=== PATIENT | male | born 1950 | race Caucasian/White ===

== ENCOUNTER → 2017-06-18 | Outpatient (CLI) | payer MEDICARE ==
--- NOTE | 2017-06-18 09:48 | US ---
EXAMINATION TYPE: US groin extremity LT DATE OF EXAM: 06/18/2017 COMPARISON: NONE CLINICAL HISTORY: K40.90 INGUINAL HERNIA. Bulging, pressure left groin since 04/10 No evidence of a break in the abdominal wall by ultrasound at this time within area of concern (left groin) IMPRESSION: No sonographic evidence of hernia.
== END | disposition home or self-care (01) ==
LOC: RADUSWWP 07:46
PROVIDERS: ATTEND Family Medicine
DX: K40.90 Unilateral inguinal hernia, without obstruction or gangrene, not specified as recurrent (principal)

== ENCOUNTER → 2017-06-22 | Outpatient (CLI) | payer MEDICARE ==
--- NOTE | 2017-06-23 11:56 | ECHOF ---
Referral Reason:R55 Syncope MEASUREMENTS -------- HEIGHT: 180.3 cm WEIGHT: 95.3 kg BP: 141/71 RVIDd: 2.9 cm (< 3.3) IVSd: 1.3 cm (0.6 - 1.1) LVIDd: 4.4 cm (3.9 - 5.3) LVPWd: 1.3 cm (0.6 - 1.1) EDV(Teich): 90 ml IVSs: 1.6 cm LVIDs: 2.9 cm LVPWs: 1.5 cm %IVS Thck: 30 % ESV(Teich): 32 ml EF(Teich): 64 % %FS: 35 % SV(Teich): 57 ml LA Diam: 3.2 cm (2.7 - 3.8) IVC: 2.1 cm LALs A4C: 5.0 cm LAAs A4C: 16.1 cm LAESV A-L A4C: 44 ml LAESV MOD A4C: 39 ml LALs A2C: 5.3 cm LAAs A2C: 15.5 cm LAESV A-L A2C: 38 ml LAESV MOD A2C: 36 ml LAESV(A-L): 42 ml LAESV Index (A-L): 19.69 ml/m Ao Diam: 3.1 cm (2.0 - 3.7) AV Cusp: 2.2 cm (1.5 - 2.6) MV E Tanvir: 0.87 m/s MV DecT: 189 ms MV Dec Baylor: 4.6 m/s MV A Tanvir: 0.89 m/s MV E/A Ratio: 0.98 MV PHT: 55 ms E/E': 11.51 E': 0.08 m/s AV Vmax: 1.32 m/s AV maxP.95 mmHg FINDINGS -------- Sinus rhythm. This was a technically good study. The left ventricular size is normal. There is mild concentric left ventricular hypertrophy. Overall left ventricular systolic function is normal with, an EF between 60 - 65 %. The right ventricle is normal in size. Normal LA size by volume 22+/-6 ml/m2. The right atrium is normal in size. The aortic valve is trileaflet and appears structurally normal. The mitral valve is normal. The tricuspid valve appears structurally normal. Trace/mild (physiologic) pulmonic regurgitation. The aortic root size is normal. The inferior vena cava is mildly dilated. There is no pericardial effusion. CONCLUSIONS -------- 1. Sinus rhythm. 2. The mitral valve is normal. 3. The tricuspid valve appears structurally normal. 4. Trace/mild (physiologic) pulmonic regurgitation. 5. The aortic root size is normal. 6. The inferior vena cava is mildly dilated. 7. There is no pericardial effusion. 8. This was a technically good study. 9. The left ventricular size is normal. 10. There is mild concentric left ventricular hypertrophy. 11. Overall left ventricular systolic function is normal with, an EF between 60 - 65 %. 12. The right ventricle is normal in size. 13. Normal LA size by volume 22+/-6 ml/m2. 14. The right atrium is normal in size. 15. The aortic valve is trileaflet and appears structurally normal. DRAFTER (CAD) ELECTRONIC: Hugh Kendrick RDCS
== END | disposition home or self-care (01) ==
LOC: RADECHMAIN 12:57
PROVIDERS: ATTEND Family Medicine
DX: I37.1 Nonrheumatic pulmonary valve insufficiency (principal)
CPT/HCPCS: 93306

== ENCOUNTER → 2017-06-24 | Outpatient (CLI) | payer MEDICARE ==
[~2017-06-24] MED LIST: DOBUTamine DRIP for NUC MED 500 MG in DEXTROSE/WATER 1 250ML.BAG IV ONE; DOBUTamine DRIP for NUC MED 500 MG/250 ML BAG IV ONE
--- NOTE | 2017-06-25 06:05 | ECHOS ---
STRESS ECHOCARDIOGRAM Date of Service: 06/24/2017 INDICATIONS:: Syncope. MEDICATIONS:: BASELINE HEART RATE:: 69 BASELINE BLOOD PRESSURE:: 112/56 MAXIMUM HEART RATE:: 135 MAXIMUM BLOOD PRESSURE:: 145/57 85% MPHR:: 132 100% MPHR:: 155 METS:: MAXIMUM STAGE REACHED:: TOTAL EXERCISE TIME:: CLINICAL INFORMATION:: Mr. Zapata is a 66-year-old gentleman with history of hypertension, diabetes and hypercholesterolemia being evaluated for cardiac status and symptoms of palpitations. Baseline EKG showed sinus rhythm with normal FL interval and QRS duration. blood pressure at rest is 112/56 with a pulse rate of 69. A standard dose of dobutamine was initiated and was titrate to 40 mcg achieving a maximum heart rate of 135 with a blood pressure of 145/57. EKGs taken during and after the dobutamine infusion did not reveal any significant change from the baseline. Occasional PVCs were noted. ECHO DATA: Baseline echo images showed normal wall motion and thickening. Dobutamine echo images showed augmentation of wall motion and thickening in all the segments at both the low dose and high dose. FINAL IMPRESSION: 1. Negative dobutamine stress. 2. Negative dobutamine stress echo. 3. Occasional PVCs. MMODL / IJN: [id number] /
== END | disposition home or self-care (01) ==
LOC: RADNMMAIN 10:56
PROVIDERS: ATTEND Family Medicine
DX: R55 Syncope and collapse (principal)
CPT/HCPCS: 93017; 93350; 93270; 93271; J1250

== ENCOUNTER 2017-07-01 07:45 | Day surgery (SDC) | payer MEDICARE ==
[2017-06-29 13:23] VITALS: BMI 29.2
[~2017-07-01 07:45] MED LIST changes: -DOBUTamine DRIP for NUC MED 500 MG in DEXTROSE/WATER 1 250ML.BAG IV ONE; -DOBUTamine DRIP for NUC MED 500 MG/250 ML BAG IV ONE; +LACTATED RINGERS 1,000 ML IV SCH; +LIDOCAINE 1% 20 ML VIAL (10MG/ML) FOR IV START INTRADERMA PRN
[2017-07-01 08:07] VITALS: RESP 16; TEMP 99.2
[2017-07-01 08:15] LABS: Glucose,Whole Blood 99 mg/dL (75-99)
[2017-07-01] MEDS ORDERED: LIDOCAINE 1% INJ 10MG/ML (20 ML MDV) ONE (08:49)
[2017-07-01] MEDS ORDERED: PROPOFOL 10 MG/ML 20 ML VIAL IV ONE (08:49)
--- NOTE | 2017-07-01 09:34 | P.PCN ---
Date of Procedure: 07/01/17 Preoperative Diagnosis: Postoperative Diagnosis: Procedure(s) Performed: Procedure: 1. Esophagogastroduodenoscopy and biopsy. 2. Colonoscopy and polypectomy. Preoperative diagnosis: History of esophageal stricture and screening colonoscopy. Postoperative diagnosis: 1. Mild gastritis and duodenitis. 2. Mild sigmoid diverticulosis with no evidence of acute diverticulitis or strictures. 3. Two small/diminutive polyps in the proximal sigmoid snared but no large polyps or cancer. Preparation: HalfLytely prep. Sedation: Was provided by anesthesia. Brief clinical history: The patient is a 66-year-old male who is scheduled for this evaluation for screening for colon neoplasia. In addition, he has history of esophageal stricture and history of episodes of obstructive dysphagia in the past and he has required dilation. His last endoscopies were more than 5 years ago. Procedure: With the patient on his left lateral decubitus position and after informed consent and adequate sedation, I passed the Olympus-GIF 160 video upper endoscope through the cricopharyngeus down the esophagus. GE junction was around 40 cm from the incisors. The esophagus did not show any obvious esophagitis or any strictures or other evidence of complicated reflux disease. There was no hiatal hernia. The endoscope was then passed into the stomach which was insufflated with air and inspected in detail including the retroflex view in the cardia. There was some mottling and erythema in the antrum but no ulcers or erosions. Pyloric channel did not show any ulcers. Duodenal bulb showed some erythema and occasional erosion but no ulcers or bleeding. Post bulbar area and descending duodenum showed some erythema. I obtained biopsies from the duodenum antrum and esophagus then the endoscope was withdrawn and I proceeded with the colonoscopy. Perianal area did not show any fissures or fistulas. There were no masses felt on digital rectal examination. The Olympus CFQ 160L video colonoscope was then inserted in the rectum and the usual fashion and advanced to the cecum. The mucosa appeared healthy. There was occasional small diverticular orifices seen in the sigmoid with no evidence of acute diverticulitis or strictures. In the proximal sigmoid, there were 2 small/diminutive polyps one was snared and there was fulgurated with the snare but there were no large polyps or cancer. I retroflexed the endoscope in the rectum before the endoscope was withdrawn. The patient tolerated the procedure well. Plan: The patient was reassured. Will await pathology results. He will follow up with you as planned. I anticipate repeating his colonoscopy in 5 years. Implants: Indications for Procedure: Operative Findings: Description of Procedure:
[2017-07-01 10:04] VITALS: BP 134/66; PULSE 91
== END 2017-07-01 10:18 | disposition home or self-care (01) ==
LOC: ORWHC2ENDO 07:45
DX: Z12.11 Encounter for screening for malignant neoplasm of colon (principal); K29.50 Unspecified chronic gastritis without bleeding; K21.0 Gastro-esophageal reflux disease with esophagitis; D12.5 Benign neoplasm of sigmoid colon; K29.80 Duodenitis without bleeding; K57.30 Diverticulosis of large intestine without perforation or abscess without bleeding; E11.42 Type 2 diabetes mellitus with diabetic polyneuropathy; I10 Essential (primary) hypertension; E78.5 Hyperlipidemia, unspecified; G12.21 Amyotrophic lateral sclerosis; Z85.46 Personal history of malignant neoplasm of prostate; Z88.8 Allergy status to other drugs, medicaments and biological substances; Z79.84 Long term (current) use of oral hypoglycemic drugs; Z79.891 Long term (current) use of opiate analgesic; Z79.899 Other long term (current) drug therapy
CPT/HCPCS: 88305; 88342; 45385; 43239; J2001; J2704

== ENCOUNTER → 2017-07-27 | Day surgery (SDC) | payer MEDICARE ==
[2017-07-22 16:12] VITALS: BMI 29.2
[~2017-07-27] MED LIST changes: -LACTATED RINGERS 1,000 ML IV SCH; -LIDOCAINE 1% 20 ML VIAL (10MG/ML) FOR IV START INTRADERMA PRN; +SODIUM CHLORIDE 0.9% 1,000 ML IV SCH
[2017-07-27 08:01] VITALS: BP 136/81; PULSE 68; RESP 16; TEMP 98.8
[2017-07-27 08:21] LABS: Glucose,Whole Blood 99 mg/dL (75-99)
--- NOTE | 2017-07-27 13:57 | CA ---
CARDIOLOGY REPORT 12 LEAD ECG REPORT: A 12-lead ECG shows sinus rhythm with normal MI interval, normal QRS, normal ST segments, normal QT interval. TILT TABLE TEST: Baseline blood pressure 114/74 mmHg.. Baseline heart rate was 60 beats per minute. Patient is tilted upright at an angle of 70 degrees per protocol. There was no change in heart rate or blood pressure. He did feel lightheaded and during the procedure he also was complaining of some shortness of breath and feeling tired but this was not associated with any change in blood pressure, nor change in heart rate. He was laid supine at the end of the procedure. IMPRESSION: Normal heart rate and blood pressure response to upright tilting. MMODL / IJN: [id number] /
== END ==
LOC: CATHEP 07:42
PROVIDERS: ATTEND Internal Medicine Clinical Cardiac Electrophysiology
DX: R42 Dizziness and giddiness (principal); R06.02 Shortness of breath
CPT/HCPCS: 93005; 93660

== ENCOUNTER 2018-11-29 08:55 | Day surgery (SDC) | payer MEDICARE ==
[2018-11-25 10:26] VITALS: BMI 29.2
[~2018-11-29 08:55] MED LIST changes: +DEXAMETHASONE SOD PHOSPHATE 10 MG/ML 1 ML VIAL IV ONE; +HEPARIN SODIUM,PORCINE 5,000 UNIT/ML 1 ML VIAL SQ ONE; +LIDOCAINE 1% 20 ML VIAL (10MG/ML) FOR IV START INTRADERMA PRN; +MIDAZOLAM (PF) 2 MG/2 ML VIAL IV PRN; -SODIUM CHLORIDE 0.9% 1,000 ML IV SCH; +ceFAZolin IN SWFI 2 GM/20 ML SYRINGE IVP ONE
[2018-11-29] MEDS: LACTATED RINGERS 1,000 ML IV SCH ×3 (10:19→10:59)
[2018-11-29 10:22] LABS: Glucose,Whole Blood 107 mg/dL (75-99)
--- NOTE | 2018-11-29 10:27 | P.GSHP ---
History of Present Illness H&P Date: 11/29/18 Chief Complaint: Left inguinal hernia This is a 67-year-old male who presents today for laparoscopic robotic system repair of left inguinal hernia. Past Medical History Past Medical History: Cancer, Diabetes Mellitus, GERD/Reflux, Hyperlipidemia, Hypertension, Neurologic Disorder, Pneumonia, Prostate Disorder, Rheumatoid Arthritis (RA), Thyroid Disorder Additional Past Medical History / Comment(s): hx prostate cancer. dx ALS- received immunoglobulin for 2 years History of Any Multi-Drug Resistant Organisms: None Reported Past Surgical History: Heart Catheterization, Orthopedic Surgery, Prostate Surgery Additional Past Surgical History / Comment(s): tendon surgery rt bicep, rt hand trigger finger, tear duct stent-rt eye, Past Anesthesia/Blood Transfusion Reactions: No Reported Reaction Smoking Status: Former smoker - Past Family History Father Family Medical History: Cancer Mother Family Medical History: Cancer Medications and Allergies Home Medications Medication Instructions Recorded Confirmed Type Atorvastatin Calcium [Lipitor] 20 mg PO HS 06/29/17 11/29/18 History Cyclobenzaprine [Flexeril] 10 mg PO TID PRN 06/29/17 11/29/18 History Diclofenac Sodium [Voltaren] 75 mg PO BID 06/29/17 11/29/18 History Enalapril [Vasotec] 10 mg PO DAILY 06/29/17 11/29/18 History Gabapentin 800 mg PO QID 06/29/17 11/29/18 History Levothyroxine Sodium [Synthroid] 50 mcg PO DAILY 06/29/17 11/29/18 History metFORMIN HCL [Glucophage] 500 mg PO BID 06/29/17 11/29/18 History traMADol HCL [Ultram] 50 mg PO QID PRN 06/29/17 11/29/18 History Allergies Allergy/AdvReac Type Severity Reaction Status Date / Time No Known Allergies Allergy Verified 11/29/18 09:35 Surgical - Exam Vital Signs Temp Pulse Resp BP Pulse Ox 96.3 F L 82 20 130/72 97 11/29/18 09:44 11/29/18 09:44 11/29/18 09:44 11/29/18 09:44 11/29/18 09:44 - General well developed, no distress - Eyes PERRL - ENT normal pinna - Neck no masses - Respiratory normal expansion - Cardiovascular Rhythm: regular - Abdomen Abdomen: soft, non tender Hernia: inguinal (Reducible left inguinal hernia) Results - Labs Abnormal Lab Results - Last 24 Hours (Table) 11/29/18 Range/Units 10:14 POC Glucose (mg/dL) 107 H (75-99) mg/dL Assessment and Plan Assessment: Left inguinal hernia. We'll perform laparoscopic robotic-assisted repair.
[2018-11-29] MEDS ORDERED: ONDANSETRON 4 MG/2 ML VIAL IVP ONE (10:45)
[2018-11-29] MEDS ORDERED: HYDROmorphone (PF) 1 MG/ML ONE (10:56)
[2018-11-29] MEDS ORDERED: KETOROLAC 30 MG/ML 1 ML VIAL ONE (10:56)
[2018-11-29] MEDS ORDERED: fentaNYL (PF) 50 MCG/ML 2 ML AMP ONE (10:56)
[2018-11-29] MEDS ORDERED: PROPOFOL 10 MG/ML 20 ML VIAL IV ONE (10:56)
[2018-11-29] MEDS ORDERED: SUCCINYLCHOLINE CHLORIDE 100 MG/5 ML SYR IV ONE (10:56)
[2018-11-29] MEDS ORDERED: ROCURONIUM BROMIDE 10 MG/ML 10 ML VIAL IV ONE (10:56)
[2018-11-29] MEDS ORDERED: NEOSTIGMINE 1 MG/ML 10 ML VIAL ONE (10:56)
[2018-11-29] MEDS ORDERED: LIDOCAINE 1% INJ 10MG/ML (20 ML MDV) ONE (10:56)
[2018-11-29] MEDS ORDERED: GLYCOPYRROLATE 0.2 MG/ML 2 ML VIAL ONE (10:56)
[2018-11-29] MEDS ORDERED: ROPIVACAINE 5 MG/ML 30 ML VIAL ONE (10:56)
--- NOTE | 2018-11-29 11:03 | P.ONQ ---
Anesthesiology Proc Note - PNB - Peripheral Nerve Block Performed Left Transversus Abdominis Single Time Out Performed: Yes (1046) Procedure Start Time: 10:47 Procedure Stop Time: 10:52 Indication: Acute Post-Operative Pain, Requested by physician (Casandra) Sedation Type: Sedate with meaningful contact maintained Preparation: Sterile Prep Position: Supine Catheter: None Needle Types: Facet Needle Size: 100mm (4") Needle Gauge: 20 Technique: Ultrasound Injectate: 0.5% Ropivacaine (see comment for volume) (30 mls) Blood Aspirated: No Pain Paresthesia on Injection Noted: No Resistance on Injection: Normal Events: Uneventful and Well Tolerated
[2018-11-29] MEDS ORDERED: BUPIVACAIN-EPI 0.5%-1:200,000 30 ML VIAL SQ ONE (11:18)
--- NOTE | 2018-11-29 12:08 | P.OP ---
Date of Procedure: 11/29/18 Preoperative Diagnosis: Left inguinal hernia Postoperative Diagnosis: Bilateral inguinal hernia Procedure(s) Performed: Laparoscopic robotic-assisted repair of bilateral inguinal hernia Right cord lipoma excision Anesthesia: MIGEL Surgeon: Steve Guajardo Estimated Blood Loss (ml): 5 Pathology: other (Right cord lipoma) Condition: stable Disposition: PACU Description of Procedure: The patient was placed on the operating table in the supine position. The patient received general anesthesia. The patient's abdomen was prepped and draped in usual sterile fashion. The skin was anesthetized 1% local Xylocaine at the incision sites. Using an 11 blade a skin incision was made at the umbilicus. The fascia was grasped with a Victor Manuel and then the peritoneal cavity was entered with the Veress needle. Position of the Veress needle was confirmed with a positive drop test. After adequate insufflation a 5 mm trocar was placed into the peritoneal cavity. The Laparoscope was placed the peritoneal cavity. And a robotic 8 mm trocar was placed in the right lateral position and then another 8 mm robotic trochars placed in the left lateral position. The original 5 mm trocar was exchanged for a 12 mm trocar. The patient was placed in reverse Trendelenburg and then the patient was docked to the robot. The left inguinal hernia contained incarcerated sigmoid colon. This was reduced with gentle traction. Next the peritoneum over top of the left hernia was incised and then using blunt and sharp dissection and electrocautery the hernia sac was dissected free from the floor of the inguinal canal. The hernia sac was completely reduced into the peritoneal cavity. And then using the Pro tractor trailer truck driver mesh the hernia was repaired. The peritoneum was then sutured with 2-0V lock suture. Next, the peritoneum over the right inguinal hernia was incised. And then using blunt and sharp dissection the hernia sac was dissected free from the floor of the inguinal canal. The hernia sac was completely reduced in the peritoneal cavity. A core lipoma was dissected free from the cord. And then using the Pro tractor trailer truck driver mesh the hernia was repaired. The peritoneum was then sutured with 2-0 Vicryl the lock suture. The patient was then undocked the robot. The needles and cord lipoma was withdrawn from the peritoneal cavity. The umbilical trocar site was closed with 0 Ethibond suture. The skin was closed interrupted 3-0 Monocryl suture. Dermabond dressing was applied. Patient was sent to recovery in stable condition.
[2018-11-29] MEDS: fentaNYL (PF) 50 MCG/ML 2 ML AMP IV PRN ×2 (12:18→12:33)
[2018-11-29 12:24] VITALS: TEMP 97
[2018-11-29 12:26] VITALS: RESP 16
[2018-11-29 13:39] VITALS: BP 153/85; PULSE 70
== END 2018-11-29 14:09 | disposition home or self-care (01) ==
LOC: OR 08:55
PROVIDERS: ATTEND Surgery
DX: K40.30 Unilateral inguinal hernia, with obstruction, without gangrene, not specified as recurrent (principal); K40.90 Unilateral inguinal hernia, without obstruction or gangrene, not specified as recurrent; E11.9 Type 2 diabetes mellitus without complications; E07.9 Disorder of thyroid, unspecified; E78.5 Hyperlipidemia, unspecified; D17.6 Benign lipomatous neoplasm of spermatic cord; K21.9 Gastro-esophageal reflux disease without esophagitis; M06.9 Rheumatoid arthritis, unspecified; I10 Essential (primary) hypertension; Z87.891 Personal history of nicotine dependence; Z85.46 Personal history of malignant neoplasm of prostate; Z79.890 Hormone replacement therapy; Z79.84 Long term (current) use of oral hypoglycemic drugs; Z79.899 Other long term (current) drug therapy
CPT/HCPCS: 49650; 64486; 88304; 84132; C1781; J1644; J1100; J2710; J2405; J2001; J3010; J1885; J1170; J2795; J0330; J2704; J0690; J2250; 64488

== ENCOUNTER 2023-08-18 09:38 | Day surgery (SDC) | payer MEDICARE ==
[~2023-08-18 09:38] MED LIST changes: -DEXAMETHASONE SOD PHOSPHATE 10 MG/ML 1 ML VIAL IV ONE; -HEPARIN SODIUM,PORCINE 5,000 UNIT/ML 1 ML VIAL SQ ONE; +LACTATED RINGERS 1,000 ML IV SCH; -LIDOCAINE 1% 20 ML VIAL (10MG/ML) FOR IV START INTRADERMA PRN; -MIDAZOLAM (PF) 2 MG/2 ML VIAL IV PRN; -ceFAZolin IN SWFI 2 GM/20 ML SYRINGE IVP ONE
[2023-08-18 10:02] VITALS: TEMP 97.3
[2023-08-18 10:11] LABS: Glucose,Whole Blood 75 mg/dL (70-110)
[2023-08-18] MEDS ORDERED: PROPOFOL 10 MG/ML 20 ML VIAL IV ONE (10:11)
[2023-08-18] MEDS ORDERED: LIDOCAINE 1% INJ 10MG/ML (20 ML MDV) ONE (10:11)
--- NOTE | 2023-08-18 10:30 | P.PCN ---
Date of Procedure: 08/18/23 Procedure(s) Performed: BRIEF HISTORY: Patient is a 72-year-old pleasant male scheduled for an elective colonoscopy as a part of evaluation of prior history of colon polyps. Last coloscopy was 6 years ago. PROCEDURE PERFORMED: Colonoscopy. PREOPERATIVE DIAGNOSIS: Of colon polyps. IV sedation per Anesthesia. PROCEDURE: After informed consent was obtained, the patient, was brought into the endoscopy unit. IV sedation was administered by Anesthesia under continuous monitoring. Digital rectal examination was normal. Initially the Olympus CF-160 flexible video colonoscope was then inserted in the rectum, gradually advanced into the cecum without any difficulty. Careful examination was performed as the scope was gradually being withdrawn. Ileocecal valve and the appendiceal orifice were visualized and appeared normal. Prep was excellent. Mucosa of the cecum, ascending colon, transverse colon, descending colon, sigmoid colon, and rectum appeared normal. Retroflexion was performed in the rectum and small internal hemorrhoid were seen. The patient tolerated the procedure well. IMPRESSION: Normal-appearing colon from rectum to cecum with no evidence of colorectal neoplasia. . Small internal hemorrhoids. RECOMMENDATIONS: Findings of this examination were discussed with the patient as well as his family. He was advised to have a repeat screening colonoscopy in 10 years..
[2023-08-18 10:43] VITALS: RESP 16
[2023-08-18 11:03] VITALS: BP 114/70; PULSE 54
== END 2023-08-18 11:16 | disposition home or self-care (01) ==
LOC: ORWHC2ENDO 09:38
PROVIDERS: ATTEND Internal Medicine Gastroenterology
DX: Z12.11 Encounter for screening for malignant neoplasm of colon (principal); K64.8 Other hemorrhoids; I10 Essential (primary) hypertension; E03.9 Hypothyroidism, unspecified; E78.5 Hyperlipidemia, unspecified; K21.9 Gastro-esophageal reflux disease without esophagitis; Z79.899 Other long term (current) drug therapy; Z85.46 Personal history of malignant neoplasm of prostate; Z86.010 Personal history of colon polyps; Z79.890 Hormone replacement therapy
CPT/HCPCS: J2001; J2704; G0105; 45378